=== PATIENT | male | born 1955 | race Caucasian/White ===

== ENCOUNTER → 2020-05-28 | Outpatient (CLI) | payer OTHER ==
--- NOTE | 2020-05-29 05:44 | REP ---
INDICATION: ATHSCL KNIK ARTERIES SARAH LEGS COMPARISON: None. TECHNIQUE: Real time zapata scale and color Doppler evaluation of the bilateral lower extremity arterial vasculature using linear high frequency transducer. FINDINGS: Zapata scale and color images demonstrate severe partially calcified atheromatous plaquing bilaterally. Right lower extremity demonstrates triphasic wave patterns at the common femoral artery and profundus followed by monophasic wave patterns from the proximal superficial femoral artery through the lower extremity. There is 2:1 stenosis at the proximal right superficial femoral artery, 4.2:1 stenosis at the mid superficial femoral artery, and 4:1 stenosis at the level of the tibioperoneal trunk and origin of the posterior tibial artery. There appears to be occlusion at the level of the proximal anterior tibial artery as well. Right KELVIN: 0.87 Left lower extremity demonstrates primarily biphasic wave patterns with 4.5:1 stenosis at the mid superficial femoral artery and area of occlusion with monophasic wave pattern at the proximal anterior tibial artery. Left KELVIN: 0.79 Peak systolic velocities (cm/sec) Common femoral artery: Right 120; Left 69 Profunda femoris: Right 122; Left 59 SFA (proximal): Right 105/216; Left 66 SFA (mid): Right 93/390; Left 87/425 SFA (distal): Right 112; Left 82 Popliteal artery: Right 84/57; Left 46 RENEA (prox.): Right 143/occluded; Left 37/occluded Tibioperoneal trunk: Right 66/154; Left 42 PARTS ROOM ASSOCIATE (prox.): Right 276; Left 64 PARTS ROOM ASSOCIATE (distal): Right 57; Left 51 RENEA (distal): Right occluded; Left occluded IMPRESSION: Severe atheromatous plaquing with areas of stenosis and occlusion as described above. <Electronically signed by Elbert Johnson > 05/29/20 [id number]
== END ==
LOC: M RAD 12:29
PROVIDERS: ATTEND Physician Assistant
DX: I70.203 Unspecified atherosclerosis of native arteries of extremities, bilateral legs (principal)

== ENCOUNTER → 2020-06-19 | Outpatient (CLI) | payer OTHER ==
[~2020-06-19] MED LIST: ASPI81CH33 PO; ASPI81TA26 PO; ENAL-36 PO; INDO-16 PO; ISOVUE-300 61% 50ML VIAL As Ordered ONE; LIDOCAINE 1% MDV 20ML VIAL As Ordered ONE; METF-838 PO; MIDAZOLAM INJ 2MG/2ML VIAL (J2250 PER 1MG) As Ordered ONE; OMEP-218 PO; PRAS10TA2 PO; ROSU20TA5 PO; fentaNYL 100 MCG/2 ML INJECTION (J3010) As Ordered ONE
[2020-06-19 07:02] LABS: HEMATOCRIT 43.4 % (42.0-52.0); HEMOGLOBIN 14.3 g/dl (13.5-17.5); MEAN CORPUSCULAR HEMOGLOBIN 29.1 pg (27.0-33.0); MEAN CORPUSCULAR HGB CONC 32.9 g/dl (32.0-36.5); MEAN CORPUSCULAR VOLUME 88.2 fl (80.0-96.0); PLATELET COUNT, AUTOMATED 485 10^3/uL (150-450); RED BLOOD COUNT 4.92 10^6/uL (4.30-6.10); WHITE BLOOD COUNT 12.5 10^3/uL (4.0-10.0)
[2020-06-19 07:22] LABS: BLOOD UREA NITROGEN 15 MG/DL (7-18); CALCIUM LEVEL 8.7 MG/DL (8.8-10.2); CARBON DIOXIDE LEVEL 27 MEQ/L (21-32); CHLORIDE LEVEL 107 MEQ/L (98-107); CREATININE FOR GFR 0.91 MG/DL (0.70-1.30); GLOMERULAR FILTRATION RATE > 60.0 (>49); GLUCOSE, FASTING 144 MG/DL (70-100); POTASSIUM SERUM 4.3 MEQ/L (3.5-5.1); SODIUM LEVEL 139 MEQ/L (136-145)
--- NOTE | 2020-06-19 09:40 | ROOPDOC ---
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 Ultrasound-guided access left common femoral artery 2. Aortoiliofemoral arteriogram with selection of the right common iliac artery oblique views of the right iliac arteries 3. Selection right common femoral and superficial femoral artery with right lower extremity runoff 4. Selection right popliteal artery with tibial runoff 5. Angioplasty right superficial femoral artery and proximal popliteal artery was 6 x 200 [place] balloon 6. Stent right superficial femoral artery distally with 6 x 150 Innova stent, mid proximal with 7 x 150 Innova stent 7. Post-dilation SFA stents with 6 x 200 [place] balloon 8. Attempt to cross chronic total occlusion right anterior tibial artery, aborted 9. Angioplasty proximal right anterior tibial artery 2 x 220 Esdras balloon 10. Angioplasty right peroneal artery with 2 x 200 Esdras balloon 11. Angioplasty right anterior tibial artery and tibioperoneal trunk with 2.5 x 100 Esdras balloon 12. Predilation right iliac arteries with 6 x 200 [place] balloon 13. Balloon expandable stent placement proximal right external iliac artery to mid right common iliac artery 9 x 57 express stent 14. Completion arteriograms SURGEON: Kyara Maldonado MD ANESTHESIA: Local anesthesia 4 cc lidocaine. Moderate intravenous conscious sedation was supervised by Dr. Maldonado. The patient was independently monitored by registered nurse assigned to the Department of radiology using automated blood pressure, EKG, and pulse oximetry. The detailed sedation record is permanently stored in the hospital information system. The following is a brief sedation record: Start time 07:45, stop time 09:02, Versed 1 mg IV, fentanyl 50 g IV, heparin 5000 units IV. CONTRAST: 52 mL of Isovue-300 INDICATION FOR PROCEDURE: This is a very pleasant 64-year-old patient with atherosclerosis in the pamunkey arteries and claudication with nonhealing wound on the dorsal aspect of his right foot. Risks benefits and alternatives to an arteriogram of the right lower extremity with potential intervention were expl ained to the patient and he was agreeable to proceed. Informed consent was obtained. INTERPRETATION: 1. The distal aorta has good runoff into the bilateral iliac systems. There is calcification throughout, but on the left we no good flow through the common iliac, hypogastric, external iliac arteries. Ectasias present but no flow- limiting stenosis noted. On the right however, there is significant calcification with a focal 20% stenosis in the proximal common iliac artery, 30% stenosis in the mid distal right common iliac artery, good flow into the hypogastric, but a focal 75% stenosis in the proximal external iliac artery with poststenotic dilatation noted. There is ectasia throughout the external iliac artery on the right. 2. The right common femoral artery is calcified but widely patent with good flow into a profunda which provides significant small collateral corkscrew flow to the mid and distal SFA. The right SFA is patent for 10 cm proximally, then has a great deal of heavy calcified plaque with areas of stenosis ranging from 30-90% throughout the mid and distal portions. Pavel's canal is also heavily calcified. The proximal popliteal artery has some ectasia in her regularity as well, somewhat flow-limiting, but the mid distal popliteal artery is patent with good runoff to the tibials. The tibials themselves are heavily diseased, with single-vessel runoff to the foot through the posterior tibial artery. There is a stenosis at the bifurcation of the tibioperoneal trunk, but still pretty good flow into the posterior tibial artery despite this. The peroneal artery has trickle flow proximally and no flow distally. The anterior tibial artery is patent for a few centimeters and then has trickle flow into a lateral collateral, but does not reconstitute distally. 3. After angioplasty of the right superficial femoral artery, there were several AV fistulas in the midportion in the areas of heaviest stenosis and plaque, dissections throughout the areas of angioplasty, some flow-limiting some not, and ongoing residual stenosis. After stenting and post dilating with a 6 x 200 balloon, there is widely patent inflow through the superficial femoral artery with resolution of the AV fistulas and no significant residual stenosis. We did note a small amount of stenosis distal to the stents in the popliteal artery and a low atmosphere inflation at the distal stent into the proximal popliteal artery resolve this with excellent flow, no dissection extravasation embolization or AV fistula noted. 4. Great attempts were made to cross a chronic total occlusion in the anterior tibial artery, ultimately unsuccessful. He did angioplasty proximally to try to open up a channel to gain more distal access with our wire catheter, but this was also ultimately unsuccessful. No extravasation following attempts. 5. After angioplasty of the right peroneal artery, there is improve flow through the artery itself, but a dissection of the distal tibioperoneal trunk limiting inflow to the posterior tibial artery. 6. After angioplasty of the right tibioperoneal trunk into the proximal posterior tibial artery with a 2.5 x 100 Esdras balloon, there is marked improvement of flow into the posterior tibial artery which is the best runoff to the foot. We sacrificed some flow into the peroneal artery, but since it tapers out at the distal calf, we prefer to save the inflow to the posterior tibial artery. Unfortunately, with a great deal of calcium at the bifurcation, we could not improve inflow to both. However, there is still improved flow through the peroneal artery overall despite this. No extravasation embolization or dissection noted. REPORT OF OPERATION: Patient was brought to the angiographic suite in stable condition. Bilateral groins were prepped and draped in a sterile fashion. A timeout was performed. Sedation was administered without complication. Local anesthesia was administered to the left groin and a microneedle was used to access the left common femoral artery under ultrasound guidance. A wire was passed through this access and the needle was removed. A 4 [place] sheath was placed and flushed with saline. A Glidewire and flushing catheter were advanced into the distal aorta and aortoiliofemoral arteriograms were performed, please see interpretation above. Next, we advanced the catheter and wire with bifurcation to the right common iliac artery and oblique views of the right iliac system were performed, please see interpretation above. We then advanced a Glidewire and in the flushing catheter to the right common femoral and superficial femoral artery and right lower extremity arteriograms were performed, please see interpretation above. We then advanced a Glidewire into the distal right popliteal artery and extremity sheath for 7 [place] by 45 cm destination sheath and flushes sheath with saline. Heparin was given and allowed circulate. A 6 x 200 [place] balloon was advanced over the wire and 2 serial angioplasties for 3 minutes were performed along the length of the proximal popliteal artery to the proximal SFA. Following this, we did find ongoing steno sis, dissections, and AV fistulas in the areas of heaviest calcification and stenosis. A 6 x 150 Innova stent was deployed just beyond Apvel's canal to the mid SFA, and this was extended with a 2 cm overlap with a 7 x 150 Innova stent. The overlap of the stents was strategically placed to double cover the areas of AV fistula in the heaviest stenosis. We then postdilated the entire length with a 6 x 200 [place] balloon. Following this there was rapid flow through the SFA and AV fistulas have resolved. No flow limiting stenosis remained. We did note some mild stenosis distal to the stent in the popliteal artery and the balloon was again inflated from the mid popliteal back into the stent for 2 minutes and following this there is widely patent inflow through the popliteal artery as well, no dissection embolization or residual stenosis noted. Next, we change the wire for a 018 Glidewire advantage and advanced this into the anterior tibial artery. We attempted to cross distally, but the wire continue to select a collateral that came off laterally at the occlusion. We advanced a 2 x 220 Esdras balloon over the wire and use the crossing capacity of this balloon to try and get a little further through the occlusion. We then inflated the balloon to try to open a channel in the calcified plaque to allow us to cross more distally. Unfortunately, despite aggressive efforts, this was unsuccessful. Arteriograms confirm there is no perforation following attempts, and improved flow into the collateral due to angioplasty the proximal vessel. We then advanced the wire into the peroneal artery and crossed to the distal calf and angioplasty with a 2 x 220 Esdras balloon. Following this, there is marked alisha inflow through the peroneal artery, but some dissection at the heavy calcified plaque at the distal tibioperoneal trunk at the bifurcation, resulting in slightly more limited flow into the posterior tibial artery, which is the best runoff to the foot. Therefore, we advanced the wire into the posterior tibial artery using a glide cath. First, we took a selected picture of the tibial vessels from the popliteal artery with the catheter. We then were able to navigate the wire into the posterior tibial artery and angioplasty with a 2.5 x 100 Esdras balloon. Three-minute inflation was performed and following this there is a marked improvement in flow into the posterior tibial artery. This did sacrificed some of the flow into the peroneal artery, but since it tapers at the calf and does not result in much flow to the foot itself, we felt the better option was to preservative flow through the posterior tibial artery which is his best runoff. We were not able to provide excellent flow to both due to the heavy bulky plaque at the bifurcation. Next, we exchange the wire for the O35 Gl idewire, and then retracted the sheath to the very proximal right common iliac artery. We predilated the iliac system with our 6 x 200 [place] balloon, and then advanced a 9 x 57 express stent across the proximal right external iliac artery into the mid common iliac artery. This was deployed and completion arteriogram showed marked improvement in flow through the vessel, no extrava sation embolization or dissections noted. There was still good flow into the hypogastric artery as well. Less than 20% residual stenosis remained at the area of heaviest plaque at the very proximal external iliac artery. This markedly improved inflow through the right iliac system. We then exchange that she for short 7 [place] sheath over the wire. The sheath was flushed with saline and a Mynx closure device was deployed under fluoroscopic guidance. Pressure was held and sterile dressings were applied. Good hemostasis was noted. The patient was taken to recovery in stable condition. ESTIMATED BLOOD LOSS: Approximately 5 mL. COMPLICATIONS: None. PLAN: Okay to resume home diet and medications. Patient will need to be on Plavix for 60 days following bare-metal stent placement. No lifting greater than 5 pounds or strenuous exercise for 72 hours. We will see him back next week to check his groin access site and his perfusion. We appreciate the opportunity to participate in the care of this patient. KYARA MALDONADO MD Jun 19, 2020 09:40
[2020-06-19 13:20] VITALS: BP 170/91
== END ==
LOC: M IRPRO 06:13
PROVIDERS: ATTEND Surgery Vascular Surgery
DX: I70.211 Atherosclerosis of native arteries of extremities with intermittent claudication, right leg (principal); I70.235 Atherosclerosis of native arteries of right leg with ulceration of other part of foot; I70.92 Chronic total occlusion of artery of the extremities; I83.813 Varicose veins of bilateral lower extremities with pain; I87.2 Venous insufficiency (chronic) (peripheral); I10 Essential (primary) hypertension; E78.00 Pure hypercholesterolemia, unspecified; I20.9 Angina pectoris, unspecified; Z79.82 Long term (current) use of aspirin; Z79.84 Long term (current) use of oral hypoglycemic drugs; Z87.891 Personal history of nicotine dependence
CPT/HCPCS: 37221; 37226; 37228; 37232; 75710; 75774; 80048; 85027; 99152; 99153; C1725; C1729; C1760; C1769; C1876; C1887; C1894; J1644; J2250; J3010; Q9967

== ENCOUNTER 2020-06-22 18:32 | Observation (INO) | payer OTHER ==
[~2020-06-22] VITALS: Ht 167.6 cm; Wt 79.3 kg
[~2020-06-22 18:32] MED LIST changes: -ASPI81TA26 PO; -INDO-16 PO; -ISOVUE-300 61% 50ML VIAL As Ordered ONE; -LIDOCAINE 1% MDV 20ML VIAL As Ordered ONE; -MIDAZOLAM INJ 2MG/2ML VIAL (J2250 PER 1MG) As Ordered ONE; -OMEP-218 PO; -fentaNYL 100 MCG/2 ML INJECTION (J3010) As Ordered ONE
[2020-06-22] MEDS ORDERED: HumaLOG INSULIN (NovoLOG) PER UNIT SC SCH (21:00)
[2020-06-22] MEDS ORDERED: ROSUVASTATIN 10 MG TAB (CRESTOR) PO SCH (21:00)
[2020-06-22 21:20] VITALS: BP 173/98
[2020-06-22] MEDS ORDERED: ACETAMINOPHEN TAB 650MG DOSE (2X325MG) PO PRN (21:25)
[2020-06-22] MEDS ORDERED: MAALOX 30 ML SUSP *UDC PO PRN (21:25)
[2020-06-22] MEDS ORDERED: MOM 30ML SUSPENSION UDC PO PRN (21:25)
[2020-06-22] MEDS ORDERED: ASPI81TA26 PO (22:05)
[2020-06-22] MEDS ORDERED: PRAS10TA2 PO (22:05)
[2020-06-22 22:08] LABS: HEMATOCRIT 40.4 % (42.0-52.0); HEMOGLOBIN 13.5 g/dl (13.5-17.5); MEAN CORPUSCULAR HEMOGLOBIN 29.9 pg (27.0-33.0); MEAN CORPUSCULAR HGB CONC 33.4 g/dl (32.0-36.5); MEAN CORPUSCULAR VOLUME 89.4 fl (80.0-96.0); PLATELET COUNT, AUTOMATED 393 10^3/uL (150-450); RED BLOOD COUNT 4.52 10^6/uL (4.30-6.10); WHITE BLOOD COUNT 16.9 10^3/uL (4.0-10.0)
[2020-06-22 22:17] LABS: INR 0.98; PROTHROMBIN TIME 13.2 SECONDS (12.5-14.3)
[2020-06-22 22:38] LABS: ALBUMIN 3.2 GM/DL (3.2-5.2); ALT/SGPT 27 U/L (12-78); BILIRUBIN,TOTAL 0.6 MG/DL (0.2-1.0); BLOOD UREA NITROGEN 12 MG/DL (7-18); CALCIUM LEVEL 8.9 MG/DL (8.8-10.2); CARBON DIOXIDE LEVEL 26 MEQ/L (21-32); CHLORIDE LEVEL 104 MEQ/L (98-107); CREATININE FOR GFR 0.78 MG/DL (0.70-1.30); GLOMERULAR FILTRATION RATE > 60.0 (>49); GLUCOSE, FASTING 135 MG/DL (70-100); POTASSIUM SERUM 4.1 MEQ/L (3.5-5.1); SODIUM LEVEL 137 MEQ/L (136-145); TOTAL PROTEIN 7.7 GM/DL (6.4-8.2)
--- NOTE | 2020-06-23 00:31 | HPEPDOC ---
[facility] Medical History & Physical Date of Admission Jun 23, 2020 Date of Service: Jun 23, 2020 History and Physical CHIEF COMPLAINT: Right knee pain HISTORY OF PRESENT ILLNESS: 64-year-old male transferred to [facility] from [facility] for evaluation by orthopedic surgery and possibly vascular surgery. Patient has a history of diabetes, hypertension, hyperlipidemia, gout, peripheral artery disease he recently underwent on June 19 angioplasty with stent placement in his right leg with Dr. Maldonado. Tells me that on he developed acute onset right knee pain which has progressively worsened over the past 24 hours which is what prompted him to present to [facility]. At no point did patient have any fevers or chills he denies any trauma to the knee and falls. Patient currently denies any chest pain or shortness of breath. Tells me his been trying to use a cane because of his right knee but eventually couldn't walk at all because of progression of the pain. Says when he lay still is fairly comfortable and not in much pain it's only triggered by movements. I did notice a scab over his right knee when I questioned him about this he tells me he had a fall onto the right knee approximately 2 weeks ago. PAST MEDICAL/SURGICAL HISTORY: Peripheral artery disease Diabetes Hypertension Hyperlipidemia Angina Cholecystectomy 2004 SOCIAL HISTORY: Endorses drinking alcohol socially Denies tobacco use currently he quit 2 years ago but prior to that he had a history of smoking 2-3 packs per day for 40 years Denies illicit drug use FAMILY HISTORY: Father has a history of CVA, CAD Mother has a history of lung cancer Brother has a history of diabetes ALLERGIES: Please see below. REVIEW OF SYSTEMS: 10 point review of systems complete all negative otherwise stated in HPI HOME MEDICATIONS: Please see below. PHYSICAL EXAMINATION: Constitutional: Awake and alert, in no apparent distress ENT: Sclera are clear. Respiratory: Lungs diminished breath sounds bilaterally. No respiratory distress. No use of accessory muscles. Cardiovascular: RRR S1 and S2 are normal, no murmur Gastrointestinal: Abdomen is soft, non distended, non tender, BS present. Musculoskeletal: No lower extremity edema. Right knee is slightly swollen with some overlying erythema is a healed scab on the lateral aspect of the knee. The knee is tender to palpation and he has limited range of motion movement. Neurologic: No focal neurological deficit. Mental Status: A&O x3, normal affect Skin: Dorsum of right foot appears to have some erythematous scaling and dry skin patient tells me this has been there unchanged for about 8 months LABORATORY DATA: See below. IMAGING: See chart MICROBIOLOGY: Please see below. ASSESSMENT/PLAN 64-year-old male transferred from [facility] to [facility] for evaluation of right knee swelling thought to be possibly septic right knee. Patient will be evaluated by orthopedic surgeon Dr. Cochran. # Right knee pain: Suspected to be possibly from septic joint vs gout initially, he does have an elevated white cell count. Clinically he looks very well and comfortable. I consulted orthopedic surgeon Dr. Cochran will come evaluate his knee. There is also question of gouty knee as patient has a history of gout we will find out once the analysis returns. Fu BCx, UA, cxr, esr, crp. Lactate normal. Dr. Cochran called me to discuss the patient once he evaluated him he believes this most likely is pseudogout and recommended treatment with indomethacin. He doesn't think aspirating the knee at this time is necessary. He believes the elevated white count could be reactive postsurgical. He will round on him again tomorrow morning. No antibiotics for now. # Peripheral artery disease: Patient had a recent procedure with Dr. Khoury angioplasty with stenting on June 19. We'll continue dual antiplatelet therapy and statin. Dr. Patton discussed this with and this is an unlikely completion related to his procedure. She is available for consultation over the weekend if warranted. # DM: ISS. Frequent Accu-Cheks. Hypoglycemic precautions. # Hypertension: Continue home meds. Monitor and titrate # Hyperlipidemia: Continue Crestor # DVT prophylaxis: Heparin A Yousef Hospitalist Vital Signs Vital Signs Date Time Temp Pulse Resp B/P (MAP) Pulse Ox O2 Delivery O2 Flow Rate FiO2 06/22/20 21:20 98.4 98 20 173/98 (123) 98 Room Air Laboratory Data Labs 24H Laboratory Tests 2 06/22/20 21:58: Nucleated Red Blood Cells % (auto) 0.0, Prothrombin Time 13.2, Prothromb Time International Ratio 0.98, Anion Gap 7L, Glomerular Filtration Rate > 60.0, Lactic Acid Level 1.0, Calcium Level 8.9, Total Bilirubin 0.6, Aspartate Amino Transf (AST/SGOT) 9, Alanine Aminotransferase (ALT/SGPT) 27, Alkaline Phosphatase 52, Total Protein 7.7, Albumin 3.2, Albumin/Globulin Ratio 0.7 CBC/BMP Laboratory Tests 06/22/20 21:58 Microbiology Microbiology 06/22/20 Blood Culture, Received Pending 06/22/20 Blood Culture, Received Pending Home Medications Scheduled Aspirin (Aspirin EC) 81 Mg Tablet.dr, 81 MG PO DAILY Enalapril Maleate (Enalapril Maleate) 10 Mg Tablet, 10 MG PO DAILY Metformin HCl (Metformin HCl ER) 500 Mg Tab.er.24h, 500 MG PO DAILY Prasugrel HCl (Prasugrel HCl) 10 Mg Tablet, 10 MG PO DAILY NOON Rosuvastatin Calcium (Rosuvastatin Calcium) 20 Mg Tablet, 20 MG PO QHS Allergies Coded Allergies: No Known Allergies (Unverified , 06/19/20) A-FIB/CHADSVASC A-FIB History Current/History of A-Fib/PAF?: No ROSANNA ARAMBULA MD Jun 23, 2020 00:31
[2020-06-23 00:33] LABS: C REACTIVE PROTEIN QUANTITATIV 7.34 MG/DL (0.00-0.30)
[2020-06-23] MEDS ORDERED: GLUCAGON INJ 1MG VIAL SC PRN (00:35)
[2020-06-23] MEDS ORDERED: DEXTROSE 50% 50 ML SYRINGE IV PRN (00:35)
[2020-06-23] MEDS ORDERED: GLUCOSE 4GM CHEW TABLET PO PRN (00:35)
[2020-06-23 00:51] LABS: ERYTHROCYTE SEDIMENTATION RATE 66 mm/hr (0-20)
--- NOTE | 2020-06-23 01:18 | REPVR ---
PROCEDURE INFORMATION: Exam: XR Chest Exam date and time: 06/23/2020 12:41 AM Age: 64 years old Clinical indication: Leukocytosis TECHNIQUE: Imaging protocol: XR of the chest Views: 1 view. COMPARISON: No relevant prior studies available. FINDINGS: Lungs: Unremarkable. No consolidation. No pulmonary edema. Pleural spaces: Unremarkable. No pleural effusion. No pneumothorax. Heart/Mediastinum: Unremarkable. No cardiomegaly. Bones/joints: Unremarkable. IMPRESSION: No acute findings. Electronically signed by: Prosper Reddy On 06/23/2020 01:17:45 AM
[2020-06-23] MEDS: INDOMETHACIN 25 MG CAP PO SCH ×2 (02:00→08:16)
[2020-06-23 06:07] VITALS: BP 143/74
[2020-06-23 06:47] LABS: HEMATOCRIT 40.2 % (42.0-52.0); HEMOGLOBIN 13.4 g/dl (13.5-17.5); MEAN CORPUSCULAR HEMOGLOBIN 29.9 pg (27.0-33.0); MEAN CORPUSCULAR HGB CONC 33.3 g/dl (32.0-36.5); MEAN CORPUSCULAR VOLUME 89.7 fl (80.0-96.0); PLATELET COUNT, AUTOMATED 427 10^3/uL (150-450); RED BLOOD COUNT 4.48 10^6/uL (4.30-6.10); WHITE BLOOD COUNT 14.2 10^3/uL (4.0-10.0)
[2020-06-23 07:06] LABS: ALT/SGPT 26 U/L (12-78); BILIRUBIN,TOTAL 0.6 MG/DL (0.2-1.0); BLOOD UREA NITROGEN 13 MG/DL (7-18); CALCIUM LEVEL 9.1 MG/DL (8.8-10.2); CARBON DIOXIDE LEVEL 26 MEQ/L (21-32); CHLORIDE LEVEL 103 MEQ/L (98-107); CREATININE FOR GFR 0.82 MG/DL (0.70-1.30); GLOMERULAR FILTRATION RATE > 60.0 (>49); GLUCOSE, FASTING 176 MG/DL (70-100); SODIUM LEVEL 135 MEQ/L (136-145); TOTAL PROTEIN 7.3 GM/DL (6.4-8.2)
[2020-06-23] MEDS: HumaLOG INSULIN (NovoLOG) PER UNIT SC SCH ×2 (08:15→13:00)
[2020-06-23 09:00] VITALS: BP 143/74
[2020-06-23] MEDS ORDERED: ASPIRIN 81MG ENTERIC TABLET PO SCH (09:00)
[2020-06-23] MEDS ORDERED: ENALAPRIL MALEATE 10 MG TAB PO SCH (09:00)
[2020-06-23] MEDS ORDERED: OMEPRAZOLE 20 MG CAP PO SCH (09:00)
[2020-06-23] MEDS ORDERED: DOCUSATE SODIUM 100MG CAPSULE PO SCH (09:00)
[2020-06-23] MEDS ORDERED: HEPARIN SOD (PORCINE) 5000UNITS/ML 1ML VIAL/SYRINGE SC SCH (09:00)
--- NOTE | 2020-06-23 09:24 | CR ---
CONSULTATION DATE: 06/23/2020 CHIEF COMPLAINT: Right knee pain and swelling. HISTORY OF PRESENT ILLNESS: This 64-year-old man was seen today for a 24-hour history of right knee pain and swelling. To note on Thursday of this week now about 3 or 4 days ago he had a procedure with an intravascular stent through the left groin to I believe the right leg by Dr. Maldonado. There were no complications related to this. He developed an insidious onset of right knee pain and swelling over the last 24 hours or so. He has not had any constitutional symptoms, no fevers, no chills, no feeling unwell. He was seen at [facility]. They attempted an aspiration of his knee at the superomedial aspect. This was unsuccessful three times. Most of his pain is in the knee. Apparently there was a crack/pop. He did have a scrape on his knee about three weeks when he was getting out of bed. PAST MEDICAL HISTORY: 1. Type 2 diabetes. 2. Hypertension. 3. Strabismus. 4. Nicotine dependence. MEDICATIONS: Aspirin, Prasugrel, rosuvastatin, enalapril, metformin. ALLERGIES: No known drug allergies. PAST SURGICAL HISTORY: 1. Left groin interventional procedure, Dr. Maldonado. 2. Past history of some sort of knee procedure when he was much younger with chronic drainage. SOCIAL HISTORY: He denies intravenous drug use. PHYSICAL EXAMINATION: His vital signs reveal him to be afebrile. He did have the highest temperature recorded here, 98.4 on 06/22/2020 at 1619. His highest pulse rate was 101 at 1924 on 06/22/20. He appears well. He is in good spirits. He is alert and oriented x3. He appears nontoxic. In terms of the left groin, there are no obvious signs of redness, swelling or drainage there, no pain with hip range of motion, full range of motion of the left knee. In terms of the right knee on inspection, this has been recently cleaned with Betadine as well as there are some signs of superomedial attempted aspiration. There is some prepatellar swelling. There is no redness or drainage and very, very minimal warmth. His range of motion 0-90 degrees. He has a small effusion. There is no pain with micromotion. There is minimal pain with range of motion 0-90 degrees, some slight soreness with attempted range of motion beyond 90 degrees of flexion. He has good sensation of his foot. The foot is warm and well perfused. Normal tibialis posterior pulse. No pain at the hip or groin. LABORATORY DATA: Blood work was reviewed from [facility]. White blood cell count 19.6, neutrophil percentage 77, his glucose 211, lactic acid 1.2. IMAGING STUDIES: Radiographs were reviewed, AP and lateral to the right knee taken again at [facility], reviewed on a CD. I agree with the radiologist's report from 06/22/20. No fracture dislocation. However, there is a small suprapatellar effusion as well as signs of mild prepatellar swelling. ASSESSMENT AND PLAN: This 64-year-old man with acute onset, right knee swelling two days following endovascular procedure of his left groin. This seems to be reactive effusion, likely a pseudogout and not septic arthritis nor is it consistent with an infected prepatellar bursitis. He does have some mild prepatellar bursitis symptoms but there is no obvious infection here. I think his high white count is simply attributable to a reactive effusion. In addition, on his x-rays, he does have some mild chondrocalcinosis there with a history of gout. I see no role for acute surgical intervention in this case. I have a very low suspicion of septic arthritis given his clinical exam and with no fevers. I think the next best step would be to treat with an anti-inflammatory, namely indomethacin. I have asked the hospitalist on awake counselor who admitted the patient overnight to start this and I will round closely and keep a close eye on this problem and see the patient in the morning to ensure that this is improving with anti-inflammatory treatment. If he shows no signs of improvement with that, then I will definitely consider as my step a repeat attempted knee aspiration and send the fluid for cultures as well as positive and negative birefringent crystals. In addition, I have asked the hospitalist to order inflammatory markers including CRP and ESR as well as daily white blood cell counts tomorrow for this patient. The patient understands and I communicated this directly to the hospitalist overnight.
--- NOTE | 2020-06-23 11:31 | IPN ---
PROGRESS NOTE DATE: 06/23/2020 CHIEF COMPLAINT: Post-admission day 1 right knee swelling. HISTORY OF PRESENT ILLNESS: This 64-year-old man developed spontaneous onset right knee swelling two days after left percutaneous intervention at his left hip by Dr. Maldonado, vascular procedure. He did well overnight, no fevers or chills, no concerns from him or the nursing staff. PHYSICAL EXAM: Well appearing 64-year-old man. Temperature 97.5. Blood pressure stable. Pulse rate 95. He appears well. The knee is slightly less swollen today. No redness or warmth. Range of motion remains the same, 90 degrees with slight pain for deeper flexion than that. Foot is warm and well perfused. Repeat white blood cell count this morning reveals 14.2. GSR 66. CRP is 7.34 last evening. ASSESSMENT/PLAN: 64-year-old man appears to have reactive right knee effusion. I would not recommend starting antibiotics or repeat aspiration at this point. We have started Indomethacin 50 mg PO three times a day. His renal function appears normal. I would recommend continue to follow daily by myself as well as Hospitalist service and just follow his inflammatory markers. He can be activity as tolerated. I have put that in as an order.
[2020-06-23 11:33] LABS: C REACTIVE PROTEIN QUANTITATIV 6.72 MG/DL (0.00-0.30)
[2020-06-23] MEDS ORDERED: CLOPIDOGREL 75 MG TAB PO SCH (12:00)
[2020-06-23] MEDS ORDERED: INDO-16 PO (12:14)
[2020-06-23] MEDS ORDERED: OMEP-218 PO (12:14)
--- NOTE | 2020-06-23 15:29 | DS.PDOC ---
Discharge Summary General Date of Admission Jun 22, 2020 at 21:05 Date of Discharge 06/23/20 Attending Physician: GAETANO LAMBERT MD Specialist/Consultants Involve: JANICE ESTEVEZ MD Discharge Summary PROCEDURES PERFORMED DURING STAY: [None]. ADMITTING DIAGNOSES: 1. Right knee pain 2/2 Pseudogout vs gout vs septic joint DISCHARGE DIAGNOSES: 1. Right knee pain 2/2 pseudogout vs gout COMPLICATIONS/CHIEF COMPLAINT: Swelling Of Knee Joint R. HISTORY OF PRESENT ILLNESS: Patient is a 64 year old male with a past medical history significant for diabetes, hypertension, hyperlipidemia, gout, and PAD who recently underwent angioplasty with stent placement and left to right femoral bypass grafting with Dr. Khoury who presented as a transfer from [facility] with a complaint of severe knee pain. Patient had stated that on he had developed acute onset of right knee pain which has progressively worsened. He stated that he presented to [facility]. He has denied any fevers or chills. The patient was transferred to [facility] for orthopedic evaluation On presentation to [facility] the patient did have an elevated WBC. He was otherwise afebrile and vitally stable. He was seen by Orthopedic surgery. A fine needle aspiration was attempted however there was no significant fluid aspirated. The patients knee did not appear overtly cellulitic or septic. He was admitted to hospitalist medicine for further evaluation and management HOSPITAL COURSE: Patient was started on indomethacin for gout vs pseudogout. CRP and ESR were elevated. Procalcitonin was not elevated. Septic arthritis/joint was felt unlikely. Patient noted improvement in his pain. Patient was discharged home with Indomethacin for a total of five days. Patient was recommended to follow-up with his primary care doctor and orthopedic surgery. DISCHARGE MEDICATIONS: Please see below. ALLERGIES: Please see below. PHYSICAL EXAMINATION ON DISCHARGE: VITAL SIGNS: Please see below. GENERAL: Awake, alert, and oriented. Appears in no acute distress. Lying in bed comfortably. Appears in no acute distress. HEENT: Atraumatic. Normocephalic. Eyes are nonicteric. Trachea is midline. Mucous membranes are pink and moist NECK: No palpable cervical, axillary, or supraclavicular lymphadenopathy CARDIOVASCULAR EXAMINATION: Normal S1. S2. Regular rate and rhythm. No clicks, rubs, or murmurs RESPIRATORY EXAMINATION: Clear vesicular breath sounds bilaterally. No wheezes, rhonchi, or rales ABDOMINAL EXAMINATION: Soft, nondistended. Nontender. Normoactive bowel sounds EXTREMITIES: No edema. Right knee without obvious effusion. Mild warmth. No erythema. Full range of motion in flexion and extension. No joint line tenderness. Mild pre-patellar tenderness; SKIN: No rashes or lesions NEUROLOGICAL EXAMINATION: No focal neurological deficits PSYCHIATRIC EXAMINATION: Mood and affect appear appropriate LABORATORY DATA: Please see below. IMAGING: PROCEDURE INFORMATION: Exam: XR Chest Exam date and time: 06/23/2020 12:41 AM Age: 64 years old Clinical indication: Leukocytosis TECHNIQUE: Imaging protocol: XR of the chest Views: 1 view. COMPARISON: No relevant prior studies available. FINDINGS: Lungs: Unremarkable. No consolidation. No pulmonary edema. Pleural spaces: Unremarkable. No pleural effusion. No pneumothorax. Heart/Mediastinum: Unremarkable. No cardiomegaly. Bones/joints: Unremarkable. IMPRESSION: No acute findings. Electronically signed by: Prosper Tovar On 06/23/2020 01:17:45 AM DD: PROSPER TOVAR MD 06/23/20 0041 DT: DELPHINE 06/23/20116 DS: PEARL 06/23/20116 PROGNOSIS: Good ACTIVITY: [As tolerated]. DIET: As tolerated DISCHARGE PLAN: Patient is to be discharged home with follow-up with PCP in 7-10 days. He is to continue medications as previously prescribed. He is to continue Indomethacin for 5 days for gout vs pseudogout attack. He is to take Prilosec daily. DISPOSITION: . DISCHARGE INSTRUCTIONS: 1. Take Indomethacin for 5 days 2. Take Prilosec daily 3. Follow-up with PCP for chronic management of Gout vs pseudogout DISCHARGE CONDITION: [Stable]. TIME SPENT ON DISCHARGE: Greater than 35 minutes. Vital Signs/I&Os Vital Signs Date Time Temp Pulse Resp B/P (MAP) Pulse Ox O2 Delivery O2 Flow Rate FiO2 06/23/20 09:00 143/74 06/23/20 06:07 97.5 95 20 97 Room Air I&O- Last 24 Hours up to 6 AM 06/23/20 06:00 Intake Total 300 ml Output Total 800 ml Balance -500 ml Laboratory Data Labs 24H Laboratory Tests 2 06/22/20 21:58: Nucleated Red Blood Cells % (auto) 0.0, Erythrocyte Sedimentation Rate 66H, Prothrombin Time 13.2, Prothromb Time International Ratio 0.98, Anion Gap 7L, Glomerular Filtration Rate > 60.0, Lactic Acid Level 1.0, Calcium Level 8.9, Total Bilirubin 0.6, Aspartate Amino Transf (AST/SGOT) 9, Alanine Aminotransferase (ALT/SGPT) 27, Alkaline Phosphatase 52, C-Reactive Protein, Quantitative 7.34H, Total Protein 7.7, Albumin 3.2, Albumin/Globulin Ratio 0.7, Procalcitonin <0.05 06/23/20 06:06: Nucleated Red Blood Cells % (auto) 0.0, Anion Gap 6L, Glomerular Filtration Rate > 60.0, Calcium Level 9.1, Total Bilirubin 0.6, Aspartate Amino Transf (AST/SGOT) 9, Alanine Aminotransferase (ALT/SGPT) 26, Alkaline Phosphatase 54, C-Reactive Protein, Quantitative 6.72H, Total Protein 7.3, Albumin 3.0L, Albu min/Globulin Ratio 0.7, Magnesium Level 2.0 06/23/20 11:28: Bedside Glucose (Misc Panel) 234H CBC/BMP Laboratory Tests 06/22/20 21:58 06/23/20 06:06 FSBS Laboratory Tests Test 06/23/20 11:28 Range/Units Bedside Glucose (Misc Panel) 234 80-115 MG/DL Microbiology Microbiology 06/22/20 Blood Culture, Received Pending 06/22/20 Blood Culture, Received Pending Discharge Medications Scheduled Aspirin (Aspirin EC) 81 Mg Tablet.dr, 81 MG PO DAILY, (Reported) Enalapril Maleate (Enalapril Maleate) 10 Mg Tablet, 10 MG PO DAILY, (Reported) Indomethacin (Indomethacin) 25 Mg Capsule, 50 MG PO TID Take 1 Tab three times a day for 5 days Metformin HCl (Metformin HCl ER) 500 Mg Tab.er.24h, 500 MG PO DAILY, (Reported) Omeprazole (Omeprazole) 20 Mg Capsule.dr, 40 MG PO DAILY Prasugrel HCl (Prasugrel HCl) 10 Mg Tablet, 10 MG PO DAILY, (Reported) NOON Rosuvastatin Calcium (Rosuvastatin Calcium) 20 Mg Tablet, 20 MG PO QHS, (Reported) Allergies Coded Allergies: No Known Allergies (Unverified , 06/19/20) GME ATTESTATION GME ATTESTATION My faculty preceptor for this patient encounter was physically present during the encounter and was fully available. All aspects of the patient interview, examination, medical decision making process, and medical care plan development were reviewed and approved by the faculty preceptor. The faculty preceptor is aware and concurs with the plan as stated in the body of this note and will attest to such by his/her cosignature. ATTENDING NOTE I, Gaetano Lambert, have independently examined this patient and performed my own physical exam, as well as reviewed the documentation and edited where necessary. I have discussed in detail with the resident / student the findings and plan of treatment as documented by the resident / student and edited their note. I agree with their findings and treatment plan and have edited their documentation. I will continue to follow the patient during this hospital stay. Time spent on discharge 35 minutes ZOE HERNANDEZ DO Jun 23, 2020 15:29 GAETANO LAMBERT MD Jun 23, 2020 15:33
== END 2020-06-23 15:10 | disposition home or self-care (01) ==
LOC: M MS5PR 21:05 → INTOOBSV 21:05
PROVIDERS: ADMIT Family Medicine; ATTEND Family Medicine
DX: M25.561 Pain in right knee (principal); R22.41 Localized swelling, mass and lump, right lower limb; M11.261 Other chondrocalcinosis, right knee; M10.9 Gout, unspecified; I10 Essential (primary) hypertension; E11.9 Type 2 diabetes mellitus without complications; E78.49 Other hyperlipidemia; I73.9 Peripheral vascular disease, unspecified; I20.9 Angina pectoris, unspecified; Z79.82 Long term (current) use of aspirin; Z79.84 Long term (current) use of oral hypoglycemic drugs; Z79.899 Other long term (current) drug therapy; Z87.891 Personal history of nicotine dependence

== ENCOUNTER → 2020-07-30 | Outpatient (CLI) | payer OTHER ==
[~2020-07-30] MED LIST changes: +ASPI81TA26 PO; +INDO-16 PO; +OMEP-218 PO
--- NOTE | 2020-08-04 21:50 | REP ---
INDICATION: ATH ERIN ART OF EXT WITH INTRT ESTHER, SARAH LEGS COMPARISON: 05/28/2020 TECHNIQUE: Real time rosenberg scale and color Doppler evaluation of the bilateral lower extremity arterial vasculature using linear high frequency transducer. FINDINGS: Right lower extremity demonstrates atheromatous plaquing with triphasic wave pattern at the common femoral artery followed by biphasic wave pattern to the level of the distal posterior tibial artery followed by monophasic wave pattern of the vascularized portions of the distal anterior tibial artery. There is a right lower extremity stent extending from the proximal to distal superficial femoral artery which appears patent. Short segments of occlusion with subsequent revascularization noted through the proximal to mid anterior tibial artery with diminished flow. Left lower extremity demonstrates moderate to significant calcified atheromatous plaquing with biphasic wave pattern. There is evidence for occlusion involving the mid to distal anterior tibial artery. Right KELVIN: 0.9; Left KELVIN: 0.7 RIGHT SFA STENT (CM/SEC) Proximal to origin: 122.9 cm/sec Proximal anastomosis: 112.1 cm/sec Distal anastomosis: 75.7 cm/sec PEAK SYSTOLIC VELOCITIES (CM/SEC) Common femoral artery: Right 156.7; Left 120.7 Profunda femoris: Right 115.0; Left 61.5 SFA (proximal): Right 120.7; Left 62.9 SFA (mid): Right 77.3; Left 91.3 SFA (distal): Right 62.6; Left 64.9 Popliteal artery: Right 65.7; Left 37.0 RENEA (prox.): Right 66.9; Left 25.1 Tibioperoneal trunk: Right 72.7; Left 50.6 GROUP EXERCISE MANAGER (prox.): Right 59.5; Left 46.6 GROUP EXERCISE MANAGER (distal): Right 59.5; Left 38.0 RENEA (distal): Right 18.6; Left occluded IMPRESSION: 1. Patent right proximal to distal superficial femoral stent. 2. Moderate to significant bilateral atheromatous plaquing with elements of occlusion as described above. <Electronically signed by Elbert Johnson > 08/04/20 0819
== END ==
LOC: M RAD 10:00
PROVIDERS: ATTEND Physician Assistant
DX: I70.213 Atherosclerosis of native arteries of extremities with intermittent claudication, bilateral legs (principal)